=== PATIENT | male | born 1955 | race Caucasian/White ===

== ENCOUNTER → 2020-07-13 | Outpatient (CLI) | payer MEDICARE, SELFPAY ==
[2017-09-06 08:21] VITALS: BMI 25.5
[2020-07-13 10:46] LABS: Absolute Lymphocyte Count 1.13 X10^3/uL (0.83-4.51); Absolute Neutrophil Count 2.6 X10^3/uL (2.0-7.7); Basophil# 0.03 X10^3/uL; Basophil% 0.6 % (0-1); Eosinophil# 0.17 X10^3/uL; Eosinophils% 3.6 % (0-5); Hematocrit 47.9 % (40-54); Hemoglobin 15.8 g/dL (13.0-16.5); Lymphocyte # 1.13 X10^3/ul (4.0); Mean Corpuscular Hgb 30.7 pg (27.0-32.0); Mean Platelet Vol. 10.5 fl (6.2-12.0); Monocyte# 0.76 X10^3/uL; Monocyte% 16.1 % (0-10); NRBC Flagged by Analyzer 0 % (0-5); Neutrophil # 2.61 X10^3/uL (2.7-7.7); Neutrophil % 55.5 % (47-70); Platelet Count 227 K/mm3 (150-450); RBC Distribution Width SD 44.2 fl (35.1-43.9); Red Blood Count 5.15 M/mm3 (4.6-6.2); White Blood Count 4.7 K/mm3 (4.4-11.0)
[2020-07-13 11:26] LABS: Vitamin D,25 Hydroxy 60.1 ng/mL
[2020-07-13 11:27] LABS: ALB/GLOB Ratio 0.9 RATIO (0.9-2.4); AST(SGOT) 28 U/L (15-37); Alanine Aminotransfer ALT/SGPT 38 U/L (16-61); Albumin, Serum 3.6 g/dL (3.2-5.0); Alkaline Phosphatase 91 U/L (45-117); Anion Gap 5 (5-15); BUN 17 mg/dL (7-18); BUN/Creat Ratio 15.3 RATIO (10-20); Calcium,Total 8.6 mg/dL (8.5-10.1); Chloride 104 mmol/L (98-107); Cholesterol 191 mg/dL (200); Creatinine, Serum 1.11 mg/dL (0.70-1.30); EST Glomerular Filtration Rate 71 mL/min (>60); Est Glom Filt Rate - Afr Amer 86 mL/min (>60); Globulin 3.8 g/dL (2.2-4.2); Glucose 96 mg/dL (74-106); High Density Lipoprotein 48 mg/dL; Potassium 3.6 mmol/L (3.5-5.1); Protein, Total 7.4 g/dL (6.4-8.2); Sodium Level 139 mmol/L (136-145); Triglycerides 77 mg/dL; Very Low Density Lipoprotein 15 mg/dL (5-40)
== END | disposition home or self-care (01) ==
PROVIDERS: Visit Provider Nurse Practitioner Family
DX: I10 Essential (primary) hypertension (principal); E78.5 Hyperlipidemia, unspecified; E55.9 Vitamin D deficiency, unspecified
CPT/HCPCS: 36415; 80053; 80061; 82306; 85025

== ENCOUNTER → 2020-10-13 16:26 | Outpatient (CLI) | payer MEDICARE, SELFPAY ==
--- NOTE | 2020-10-13 16:48 | RAD_ITS ---
STUDY: X-RAY - ABDOMEN/PELVIS REASON FOR EXAM: Male, 64 years old. CONSTIPATION TECHNIQUE: AP supine and upright views of the abdomen and pelvis. COMPARISON: None. FINDINGS: Normal visualized lung bases. There is an unremarkable bowel gas pattern. There is no demonstrated free abdominal air. The visualized liver, spleen and kidneys are grossly normal in size and morphology. Normal soft tissue structures. Mild dextroscoliosis of the lumbar spine with degenerative disc disease. RAD/Abd Inc Decub and/or Erect IMPRESSION: Normal x-ray examination of the abdomen and pelvis. Electronically Signed: Mark Riojas MD at 17:16 EST Tel , Service support ,
[2020-10-13 21:30] LABS: Absolute Lymphocyte Count 0.83 X10^3/uL (0.83-4.51); Absolute Neutrophil Count 2.8 X10^3/uL (2.0-7.7); Basophil# 0.02 X10^3/uL; Basophil% 0.5 % (0-1); Eosinophil# 0.02 X10^3/uL; Eosinophils% 0.5 % (0-5); Hematocrit 51.9 % (40-54); Lymphocyte # 0.83 X10^3/ul (4.0); Lymphocyte % 20.2 % (19-41); Mean Corp Hgb Conc 32.8 g/dL (32-36); Mean Corpuscular Hgb 30.9 pg (27.0-32.0); Mean Corpuscular Volume 94.2 fL (80-94); Mean Platelet Vol. 11.1 fl (6.2-12.0); Monocyte% 9.8 % (0-10); NRBC Flagged by Analyzer 0 % (0-5); Neutrophil # 2.81 X10^3/uL (2.7-7.7); Neutrophil % 68.5 % (47-70); Platelet Count 178 K/mm3 (150-450); RBC Distribution Width CV 12.4 % (11.6-14.6); RBC Distribution Width SD 43.2 fl (35.1-43.9); Red Blood Count 5.51 M/mm3 (4.6-6.2); White Blood Count 4.1 K/mm3 (4.4-11.0)
[2020-10-13 21:55] LABS: ALB/GLOB Ratio 0.8 RATIO (0.9-2.4); AST(SGOT) 42 U/L (15-37); Alanine Aminotransfer ALT/SGPT 40 U/L (16-61); Albumin, Serum 3.3 g/dL (3.2-5.0); Alkaline Phosphatase 106 U/L (45-117); Anion Gap 8 (5-15); BUN 18 mg/dL (7-18); BUN/Creat Ratio 12.2 RATIO (10-20); Calcium,Total 8.7 mg/dL (8.5-10.1); Chloride 96 mmol/L (98-107); Creatinine, Serum 1.47 mg/dL (0.70-1.30); EST Glomerular Filtration Rate 51 mL/min (>60); Est Glom Filt Rate - Afr Amer 62 mL/min (>60); Globulin 4.4 g/dL (2.2-4.2); Glucose 99 mg/dL (74-106); Magnesium 2.3 mg/dL (1.6-2.6); Potassium 3.6 mmol/L (3.5-5.1); Protein, Total 7.7 g/dL (6.4-8.2); Sodium Level 133 mmol/L (136-145); Thyroid Stim Hormone (TSH) 3.14 uIU/mL (0.358-3.74)
== END ==
DX: M79.10 Myalgia, unspecified site (principal); K59.00 Constipation, unspecified; R42 Dizziness and giddiness
CPT/HCPCS: 36415; 74019; 80053; 83735; 84443; 85025

== ENCOUNTER 2021-01-16 11:27 | Emergency (ER) | payer MEDICARE, SELFPAY ==
[2021-01-16 11:28] VITALS: BP 139/99; PULSE 98; RESP 16; TEMP 35.8; O2SAT 96; BMI 27.4
--- NOTE | 2021-01-16 13:04 | CT_ITS ---
STUDY: CT SOFT TISSUE NECK WITH CONTRAST REASON FOR EXAM: Male, 65 years old. DYSPHAGIA, PT STATES and quot;GOT SOMETHING STUCK IN THROAT and quot; RADIATION DOSAGE (If Supplied By Facility): CTDIvol = ( 14.9 ) mGy, DLP = ( 431.88 ) mGycm TECHNIQUE: The patient was scanned in a multi-detector CT scanner. High resolution transaxial imaging was performed following intravenous administration of IV 100mL Isovue-370. Sagittal and coronal images were reconstructed. Individualized dose optimization techniques were used for this CT. COMPARISON: None. FINDINGS: Normal bilateral parotid glands. Normal bilateral case work aide spaces. Normal bilateral parapharyngeal spaces. Normal bilateral carotid spaces. Normal bilateral sublingual and submandibular glands and spaces. There is diffuse adenoidal enlargement consistent with adenoidal hyperplasia. Normal retropharyngeal space. Normal perivertebral space. Normal visualized bilateral faucial tonsils. The visualized tongue, tongue base and oropharynx are normal. The visualized cervical lymph nodes (levels I-) are within normal size limits, and maintain normal morphology. There is no demonstrated solid or cystic mass lesion. There is no abnormal contrast enhancement. Normal epiglottis, bilateral vallecula and hypopharynx. The pre-epiglottic and paraglottic adipose spaces are normal. Normal visualized bilateral piriform sinuses, aryepiglottic folds, vocal cords, and arytenoid-cricoid articulations. Normal subglottic trachea. Normal bilateral lobes of the thyroid gland. Normal visualized pulmonary apices. Normal visualized paranasal sinuses. There is multilevel degenerative changes of the cervical spine. CT/Soft Tissue Neck WITH Contrast IMPRESSION: There is evidence of hyperplasia of the adenoids. Mildly dilated proximal esophagus with air-fluid level. Electronically Signed: Benji Cuellar MD at 14:09 EST , Service support ,
--- NOTE | 2021-01-16 14:46 | ED.DCSUM_ITS ---
- ER Visit Summary Date of Service: 01/16/21 Chief Complaint: Sensation of food stuck in throat History of Present Illness: The patient is a 65 M presenting with sensation that he has food stuck in his throat. He states this has been ongoing for the past 3 days. He has been able to swallow food and liquids without difficulty. He denies nausea or vomiting. Denies other complaints. Physical Examination: Vitals are stable. Patient is afebrile. Alert no acute distress. HEENT exam is unremarkable. Normal pharynx Neck is supple. Lungs are clear and equal bilaterally. Heart is regular rate and rhythm. Abdomen is soft nontender nondistended. Extremities are unremarkable. Skin is warm and dry. Remainder of exam is unremarkable. Emergency Department Course and Treatment: Patient is able to swallow in the ED without difficulty. CT soft tissue neck with contrast shows there is evidence of hyperplasia of the adenoids. Mildly dilated proximal esophagus with air-fluid level. Discussed with Dr. Abbott, patient will follow-up in the office as needed. Advised return to the ED for worsening complaints. Disposition: Discharge home Impression: Dysphagia This note was generated with [employer] dictation software. It may contain incorrect words, spelling, and punctuation that were not noted in review of the chart prior to signing ED Disposition - Plan for ED Patient: Instructions: ED Dysphagia (Adult) Referrals: Meme Abbott MD [STAFF PHYSICIAN] - [facility],Jessie Sorensen [Primary Care Provider] -
--- NOTE | 2021-01-16 14:49 | DCINST.ED_ITS ---
ED Disposition - Plan for ED Patient: Instructions: ED Dysphagia (Adult) Referrals: [facility],Jessie Sorensen [Primary Care Provider] - Meme Abbott MD [STAFF PHYSICIAN] -
--- NOTE | 2021-01-16 14:49 | ED.DEP ---
ED Disposition - Plan for ED Patient: Instructions: ED Dysphagia (Adult) Referrals: [facility],Jessie Sorensen [Primary Care Provider] - Meme Abbott MD [STAFF PHYSICIAN] -
== END 2021-01-16 15:21 | disposition home or self-care (01) ==
LOC: ED 12:14
PROVIDERS: Emergency Provider Emergency Medicine
DX: R13.10 Dysphagia, unspecified (principal); I10 Essential (primary) hypertension
CPT/HCPCS: 70491; 99282; Q9967; A4216

== ENCOUNTER → 2021-01-25 08:31 | Outpatient (CLI) | payer MEDICARE, MEDICAID, SELFPAY ==
[2021-01-16 11:28] VITALS: BMI 27.4
[2021-01-20 13:20] VITALS: BMI 27.4
--- NOTE | 2021-01-25 08:40 | RAD_ITS ---
STUDY: X-RAY - ESOPHAGUS (BARIUM SWALLOW) WITH FLUOROSCOPY REASON FOR EXAM: Male, 65 years old. DYSPHAGIA TECHNIQUE: 12 view(s) of the esophagus were obtained following swallowing of barium. FLUOROSCOPY TIME (if supplied): (0:53) minutes/seconds COMPARISON: None. FINDINGS: There is no demonstrated esophageal foreign body. There is no demonstrated stricture or mucosal abnormality. Normal gastroesophageal junction, without a demonstrated hiatal hernia. The patient ingested a 12 mm tablet of barium without any difficulty. Normal visualized aortic arch and descending thoracic aorta. Normal visualized pulmonary parenchyma. Normal visualized osseous structures of the thorax. RAD/Esophagus Dual Contrast IMPRESSION: Normal plain film x-ray examination (barium swallow) of the esophagus. Electronically Signed: Benji Cuellar MD at 10:52 EST , Service support ,
== END ==
DX: R13.10 Dysphagia, unspecified (principal); R93.89 Abnormal findings on diagnostic imaging of other specified body structures
CPT/HCPCS: 74220; 74221

== ENCOUNTER → 2021-02-10 11:13 | Outpatient (CLI) | payer MEDICARE, MEDICAID, SELFPAY ==
[2021-01-20 13:20] VITALS: BMI 27.4
[2021-02-10 09:12] LABS: Absolute Lymphocyte Count 0.95 X10^3/uL (0.83-4.51); Absolute Neutrophil Count 2.4 X10^3/uL (2.0-7.7); Basophil# 0.02 X10^3/uL; Basophil% 0.5 % (0-1); Eosinophil# 0.11 X10^3/uL; Eosinophils% 2.6 % (0-5); Hematocrit 47.4 % (40-54); Hemoglobin 15.8 g/dL (13.0-16.5); Lymphocyte # 0.95 X10^3/ul (4.0); Lymphocyte % 22.7 % (19-41); Mean Corp Hgb Conc 33.3 g/dL (32-36); Mean Corpuscular Hgb 31.4 pg (27.0-32.0); Mean Corpuscular Volume 94.2 fL (80-94); Mean Platelet Vol. 9.7 fl (6.2-12.0); Monocyte# 0.66 X10^3/uL; Monocyte% 15.8 % (0-10); NRBC Flagged by Analyzer 0 % (0-5); Neutrophil # 2.42 X10^3/uL (2.7-7.7); Neutrophil % 57.9 % (47-70); Platelet Count 207 K/mm3 (150-450); RBC Distribution Width CV 12.5 % (11.6-14.6); RBC Distribution Width SD 43.4 fl (35.1-43.9); Red Blood Count 5.03 M/mm3 (4.6-6.2); White Blood Count 4.2 K/mm3 (4.4-11.0)
[2021-02-10 10:01] LABS: Vitamin D,25 Hydroxy 62.1 ng/mL
[2021-02-10 10:02] LABS: ALB/GLOB Ratio 1.1 RATIO (0.9-2.4); AST(SGOT) 26 U/L (15-37); Alanine Aminotransfer ALT/SGPT 38 U/L (16-61); Albumin, Serum 3.8 g/dL (3.2-5.0); Alkaline Phosphatase 94 U/L (45-117); Anion Gap 6 (5-15); BUN 15 mg/dL (7-18); BUN/Creat Ratio 11.6 RATIO (10-20); Calcium,Total 9.1 mg/dL (8.5-10.1); Chloride 106 mmol/L (98-107); Cholesterol 212 mg/dL (200); Creatinine, Serum 1.29 mg/dL (0.70-1.30); EST Glomerular Filtration Rate 59 mL/min (>60); Est Glom Filt Rate - Afr Amer 72 mL/min (>60); Globulin 3.6 g/dL (2.2-4.2); Glucose 90 mg/dL (74-106); High Density Lipoprotein 44 mg/dL; Potassium 3.7 mmol/L (3.5-5.1); Protein, Total 7.4 g/dL (6.4-8.2); Sodium Level 140 mmol/L (136-145); Triglycerides 154 mg/dL; Very Low Density Lipoprotein 31 mg/dL (5-40)
== END ==
PROVIDERS: Visit Provider Surgery
DX: I10 Essential (primary) hypertension (principal); E55.9 Vitamin D deficiency, unspecified; E78.5 Hyperlipidemia, unspecified; E87.6 Hypokalemia; Z20.822 Contact with and (suspected) exposure to COVID-19
CPT/HCPCS: 36415; 80053; 80061; 82306; 85025; 87426; C9803

== ENCOUNTER → 2021-09-15 16:28 | Outpatient (CLI) | payer MEDICARE, MEDICAID, SELFPAY ==
[2021-09-15 17:34] LABS: ALB/GLOB Ratio 0.9 RATIO (0.9-2.4); AST(SGOT) 43 U/L (15-37); Alanine Aminotransfer ALT/SGPT 37 U/L (16-61); Albumin, Serum 3.6 g/dL (3.2-5.0); Alkaline Phosphatase 91 U/L (45-117); Anion Gap 4 (5-15); BUN 19 mg/dL (7-18); BUN/Creat Ratio 15.8 RATIO (10-20); Calcium,Total 8.9 mg/dL (8.5-10.1); Chloride 106 mmol/L (98-107); Cholesterol 178 mg/dL (200); EST Glomerular Filtration Rate 64 mL/min (>60); Est Glom Filt Rate - Afr Amer 78 mL/min (>60); Glucose 110 mg/dL (74-106); High Density Lipoprotein 45 mg/dL; Protein, Total 7.6 g/dL (6.4-8.2); Sodium Level 137 mmol/L (136-145); Thyroid Stim Hormone (TSH) 2.11 uIU/mL (0.358-3.74); Triglycerides 78 mg/dL; Very Low Density Lipoprotein 16 mg/dL (5-40)
[2021-09-19 17:03] LABS: PSA, Total 0.3 ng/mL (0.0-4.0)
== END ==
PROVIDERS: Visit Provider Nurse Practitioner Adult Health
DX: I10 Essential (primary) hypertension (principal); Z12.5 Encounter for screening for malignant neoplasm of prostate
CPT/HCPCS: 36415; 80053; 80061; 84153; 84443; G0103

== ENCOUNTER → 2022-03-22 | Outpatient (CLI) | payer MEDICARE, SELFPAY ==
[2022-03-22 12:50] LABS: ALB/GLOB Ratio 0.9 RATIO (0.9-2.4); AST(SGOT) 24 U/L (15-37); Alanine Aminotransfer ALT/SGPT 30 U/L (16-61); Albumin, Serum 3.7 g/dL (3.2-5.0); Alkaline Phosphatase 96 U/L (45-117); BUN 22 mg/dL (7-18); BUN/Creat Ratio 17.9 RATIO (10-20); Calcium,Total 9.6 mg/dL (8.5-10.1); Creatinine, Serum 1.23 mg/dL (0.70-1.30); EST Glomerular Filtration Rate 63 mL/min (>60); Est Glom Filt Rate - Afr Amer 76 mL/min (>60); Glucose 106 mg/dL (74-106); Protein, Total 7.7 g/dL (6.4-8.2); Sodium Level 137 mmol/L (136-145)
[2022-03-22 12:51] LABS: Anion Gap 4 (5-15); Chloride 104 mmol/L (98-107)
== END | disposition home or self-care (01) ==
LOC: LABSPEC 13:47 → LAB 03-23 06:22
PROVIDERS: Visit Provider Nurse Practitioner Adult Health
DX: I10 Essential (primary) hypertension (principal)
CPT/HCPCS: 36415; 80053

== ENCOUNTER 2022-09-24 11:50 | Outpatient (CLI) | payer MEDICARE, SELFPAY ==
[2022-09-24 13:54] LABS: Vitamin D,25 Hydroxy 85.7 ng/mL
[2022-09-24 14:05] LABS: Anion Gap 8 (5-15); BUN 18 mg/dL (7-18); BUN/Creat Ratio 14.9 RATIO (10-20); Calcium,Total 9.5 mg/dL (8.5-10.1); Chloride 102 mmol/L (98-107); Cholesterol 172 mg/dL (200); Creatinine, Serum 1.21 mg/dL (0.70-1.30); EST Glomerular Filtration Rate 64 mL/min (>60); Est Glom Filt Rate - Afr Amer 77 mL/min (>60); Glucose 114 mg/dL (74-106); High Density Lipoprotein 46 mg/dL; Potassium 3.9 mmol/L (3.5-5.1); Sodium Level 134 mmol/L (136-145); Triglycerides 98 mg/dL; Very Low Density Lipoprotein 20 mg/dL (5-40)
== END 2022-09-24 23:59 | disposition home or self-care (01) ==
DX: I10 Essential (primary) hypertension (principal)
CPT/HCPCS: 36415; 80048; 80061; 82306

== ENCOUNTER → 2023-07-18 | Outpatient (CLI) | payer MEDICARE, MEDICAID, SELFPAY ==
[2023-07-18 11:17] LABS: Absolute Lymphocyte Count 1.15 X10^3/uL (0.83-4.51); Absolute Neutrophil Count 5.9 X10^3/uL (2.0-7.7); Basophil# 0.03 X10^3/uL; Basophil% 0.4 % (0-1); Eosinophil# 0.22 X10^3/uL; Eosinophils% 2.6 % (0-5); Hemoglobin 16.5 g/dL (13.0-16.5); Lymphocyte # 1.15 X10^3/ul (0.83-4.51); Lymphocyte % 13.6 % (19-41); Mean Corp Hgb Conc 33.7 g/dL (32-36); Mean Corpuscular Hgb 31.5 pg (27.0-32.0); Mean Corpuscular Volume 93.5 fL (80-94); Mean Platelet Vol. 9.8 fl (6.2-12.0); Monocyte# 1.09 X10^3/uL; Monocyte% 12.9 % (0-10); NRBC Flagged by Analyzer 0 % (0-5); Neutrophil # 5.93 X10^3/uL (2.7-7.7); Neutrophil % 70.1 % (47-70); Platelet Count 267 K/mm3 (150-450); RBC Distribution Width CV 13.1 % (11.6-14.6); RBC Distribution Width SD 44.8 fl (35.1-43.9); Red Blood Count 5.24 M/mm3 (4.6-6.2); White Blood Count 8.5 K/mm3 (4.4-11.0)
[2023-07-18 12:00] LABS: AST(SGOT) 27 U/L (15-37); Alanine Aminotransfer ALT/SGPT 34 U/L (16-61); Albumin, Serum 3.9 g/dL (3.2-5.0); Alkaline Phosphatase 89 U/L (45-117); Anion Gap 7 (5-15); BUN 31 mg/dL (7-18); BUN/Creat Ratio 22.3 RATIO (10-20); Calcium,Total 9.5 mg/dL (8.5-10.1); Chloride 102 mmol/L (98-107); Cholesterol 205 mg/dL (200); Creatinine, Serum 1.39 mg/dL (0.70-1.30); EST Glomerular Filtration Rate 54 mL/min (>60); Est Glom Filt Rate - Afr Amer 65 mL/min (>60); Free T3 3.4 pg/mL (2.18-3.98); Globulin 3.9 g/dL (2.2-4.2); Glucose 107 mg/dL (74-106); High Density Lipoprotein 42 mg/dL; Magnesium 2.1 mg/dL (1.6-2.6); PSA,Total - Annual Screen 0.36 ng/mL (0.00-4.00); Potassium 4.2 mmol/L (3.5-5.1); Protein, Total 7.8 g/dL (6.4-8.2); Sodium Level 134 mmol/L (136-145); T4 Free Direct 1.03 ng/dL (0.76-1.46); Thyroid Stim Hormone (TSH) 1.54 uIU/mL (0.358-3.74); Triglycerides 116 mg/dL; Very Low Density Lipoprotein 23 mg/dL (5-40)
[2023-07-18 15:17] LABS: Hemoglobin A1c 5.5 % (3.8-5.6)
[2023-07-18 21:37] LABS: Vitamin D,25 Hydroxy 113.3 ng/mL
== END | disposition home or self-care (01) ==
LOC: LAB 10:42
PROVIDERS: PCP Internal Medicine; Referring Provider Internal Medicine; Visit Provider Internal Medicine
DX: I10 Essential (primary) hypertension (principal); H91.93 Unspecified hearing loss, bilateral; K21.9 Gastro-esophageal reflux disease without esophagitis; Z13.220 Encounter for screening for lipoid disorders; Z12.5 Encounter for screening for malignant neoplasm of prostate; R73.9 Hyperglycemia, unspecified; E55.9 Vitamin D deficiency, unspecified
CPT/HCPCS: 36415; 80053; 80061; 82306; 83036; 83735; 84153; 84439; 84443; 84481; 85025; G0103

== ENCOUNTER 2024-01-09 11:17 | Emergency (ER) | payer MEDICARE, MEDICAID, SELFPAY ==
[2024-01-09 11:18] VITALS: BP 137/93; PULSE 71; RESP 14; TEMP 36.6; O2SAT 99; BMI 34.4
--- NOTE | 2024-01-09 12:16 | CT_ITS ---
STUDY: CT ABDOMEN AND PELVIS WITH CONTRAST REASON FOR EXAM: Male, 68 years old. Lower abd pain, rectal bleeding RADIATION DOSAGE (If Supplied By Facility): CTDIvol = ( 14.33 ) mGy, DLP = ( 1007.17 ) mGycm TECHNIQUE: IV 100mL Isovue-300 was administered. Transaxial images were obtained from the dome of the diaphragm to the symphysis pubis. Multiplanar coronal and sagittal images were reformatted. Individualized Dose Optimization Techniques Were Used For This CT. COMPARISON: Prior study dated: 09/25/2017. FINDINGS: The lower chest demonstrates calcified granulomata. The visualized portions of the heart are within normal limits. Liver cysts are again seen, the largest measures about 1 cm unchanged. Normal gallbladder and extrahepatic biliary system. Normal spleen. Normal pancreas. Normal bilateral adrenal glands. 1.2 cm simple cyst in the lower pole of the left kidney. No evidence of hydronephrosis. Probable small hiatal hernia. Normal in caliber small bowel loops. Motion artifacts limiting the examination. Thickening of a segment of the descending colon consistent with colitis. Diverticulitis is less likely. The appendix is visualized and appears normal. There is atherosclerotic calcification of the abdominal aorta with mild elongation and tortuosity, but without a demonstrated aneurysm. Thickening of the bladder wall probably due to underdistention Mild thickening of the bladder wall probably due to underdistention. Small bilateral inguinal hernias containing fat. Degenerative changes of the spine. CT/Abdomen/Pelvis W IV Cont ONLY IMPRESSION: 1. Segment of inflammatory changes of the descending colon consistent with colitis. 2. Otherwise no focal acute inflammatory process. 3. Small bilateral inguinal hernias containing fat. Electronically Signed: Brooks Trejo MD at 13:48 EST ,
--- NOTE | 2024-01-09 12:17 | ED.VIS.GI ---
HPI HPI - GI History of Present Illness Chief Complaint: GI Bleed Informant: patient and friend (Helped by riding some things down. Patient can read lips and speak.) Narrative Narrative: 2 or 3 days ago this 68-year-old deaf male states he had a normal soft bowel movement followed by rectal bleeding Right afterwards. He states shortly thereafter, he felt weak and collapsed to the floor without injury but was unable to get up on his own for about 8 hours but then eventually did. He states while he was there, he developed lower abdominal pain that has been there ever since, he did not bleed while he was lying there awake, but he has had more bleeding with bowel movements since then. He denies any dizziness/lightheadedness, nausea, vomiting, dyspnea or chest pain. Denies rectal pain. PFSH FORMERLY [facility], 1928–1983 Medical History GERD (gastroesophageal reflux disease) HTN (hypertension) Screen for colon cancer Home Medications amlodipine 10 mg tablet 10 mg PO DAILY BLOOD PRESSURE #90 tabs 04/04/23 [Rx Last Taken Unknown] cholecalciferol (vitamin D3) 125 mcg (5,000 unit) capsule 5,000 unit PO DAILY SUPPLEMENT #90 caps 04/04/23 [Rx Last Taken Unknown] omeprazole 20 mg capsule,delayed release 20 mg PO DAILY GERD #90 caps 04/04/23 [Rx Last Taken Unknown] losartan 50 mg-hydrochlorothiazide 12.5 mg tablet 1 tab PO DAILY BLOOD PRESSURE #90 tabs 04/06/23 [Rx Last Taken Unknown] spironolactone 25 mg tablet 25 mg PO DAILY BLOOD PRESSURE #90 tabs 04/11/23 [Rx Last Taken Unknown] ciprofloxacin HCl 500 mg tablet 500 mg PO BID #14 TABLETS 01/09/24 [Rx Last Taken Unknown] metronidazole 500 mg tablet 500 mg PO BID #14 tabs 01/09/24 [Rx Last Taken Unknown] Allergy/AdvReac Type Severity Reaction Status Date / Time No Known Allergies Allergy Verified 01/09/24 11:18 Family History Father Heart disease Mother Kidney disease Other CVA (cerebral vascular accident) Surgical History S/P hernia repair Social History adopted: No household members: none housing: house current occupational status: unemployed leisure activities: other history of recent travel: No sexually active: No Smoking Status: Never smoker alcohol intake: never substance use type: does not use ROS ROS ED Constitutional Constitutional ED: Denies chills or fever(s) Eyes Eyes: Denies change in vision or diplopia ENT ENT ED: Reports other; Denies rhinorrhea or sore throat Cardiovascular Cardiovascular: Denies chest pain or palpitations Respiratory/Chest Respiratory/Chest: Denies cough or dyspnea Gastrointestinal Gastrointestinal: Reports as per HPI, abdominal pain and hematochezia; Denies diarrhea, melena, nausea or vomiting Genitourinary Genitourinary ED: Denies dysuria or hematuria Musculoskeletal Musculoskeletal: Denies back pain or neck pain Integumentary Denies abscess or rash Neurologic Neurologic: Denies headache(s), paresthesias or weakness Psychiatric Psychiatric: Denies anxiety or suicidal thoughts EXAM Physical Exam Const Vital Signs: 01/09/24 11:18 Temperature 98 F Temperature Source Temporal Pulse Rate 71 Respiratory Rate 14 Blood Pressure 137/93 H Blood Pressure Mean 107 Pulse Ox 99 Oxygen Delivery Method Room Air Positive well nourished and well developed General Appearance ED: well developed and NAD HEENT Reports moist mucous membranes normocephalic and atraumatic Eyes PERRL and EOMs intact bilaterally Neck full ROM and supple Resp normal respiratory effort and clear to auscultation bilaterally Cardio regular rate, regular rhythm and no murmurs GI non-distended GI Narrative: Mild bilateral lower quadrant tenderness without guarding or rebound or pulsatile mass. On rectal, there is a small amount of red stool present, but there is no active bleeding or pooling on SUSAN. No palpable tenderness/abscess. No external or prolapsed thrombosed hemorrhoids. Auscultation: normoactive bowel sounds Palpation: soft Back/Spine no CVA tenderness General Back: other FROM Extremity normal to inspection General Extremety ED: Negative for edema, pulses abnormal or tenderness General Extremity: Negative for edema or pulses abnormal Neuro oriented x3, CN's II-XII intact bilaterally and no sensory deficits noted Sensorium / Orientation: awake and alert Motor Exam: strength 5/5 throughout Skin no rashes or lesions noted and no wounds MDM MDM MDM Narrative Medical decision making narrative: The patient's symptoms are consistent with a bleeding internal hemorrhoid which is certainly in the differential diagnosis, but so are other colonic sources of bleeding since he is having a lower abdominal discomfort. For this reason labs and a CT were obtained. I reviewed the images and report which I agree with, it shows some mild distal colitis without evidence of diverticulosis/diverticulitis, or perforation. No other inflammatory acute issues. He does have a mild leukocytosis. Therefore I am going to treat empirically for possible infectious colitis with Cipro and Flagyl, and advised close outpatient follow-up, he has an appointment with his doctor later this month which I think is a reasonable place to start. He is on no antiplatelets or anticoagulants that we need to discontinue temporarily. He is comfortable with that plan. Lab Data Attestation: I reviewed the patient's lab results. Labs: Laboratory Results - last 24 hr 01/09/24 12:30 WBC 13.6 H RBC 4.85 Hgb 14.9 Hct 44.3 MCV 91.3 MCH 30.7 MCHC 33.6 RDW Std Deviation 41.7 RDW Coeff of Lisseth 12.5 Plt Count 229 MPV 10.2 Immature Gran % (Auto) 1.000 H Neut % (Auto) 83.9 H Lymph % (Auto) 7.2 L Surry % (Auto) 7.0 Eos % (Auto) 0.5 Baso % (Auto) 0.4 Absolute Neuts (auto) 11.4 H Absolute Lymphs (auto) 0.98 Nucleated RBC % 0 Sodium 135 L Potassium 3.7 Chloride 104 Carbon Dioxide 27.0 Anion Gap 4 L BUN 23 H Creatinine 1.39 H Estim Creat Clear Calc 44.63 Est GFR (MDRD) Af Amer 65 Est GFR (MDRD) Non-Af 54 L BUN/Creatinine Ratio 16.5 Glucose 110 H Calcium 9.2 Total Bilirubin 0.60 AST 18 ALT 24 Alkaline Phosphatase 95 Total Creatine Kinase 76 Total Protein 7.1 Albumin 3.3 Globulin 3.8 Albumin/Globulin Ratio 0.9 Radiography Diagnostic Testing: Clinical Impression(s) from Imaging Studies Abdomen/Pelvis CT 01/09/24 12:16 IMPRESSION: 1. Segment of inflammatory changes of the descending colon consistent with colitis. 2. Otherwise no focal acute inflammatory process. 3. Small bilateral inguinal hernias containing fat. Electronically Signed: Brooks Trejo MD at 13:48 EST , Discharge Plan Triage Chief Complaint: GI Bleed ED Provider: Jamel Paul Dx/Rx/DC Orders Clinical Impression: Colitis, Acute lower GI bleeding Instructions: ED Understanding Colitis, ED Lower GI Bleeding (Stable) Prescriptions: New metronidazole [metronidazole] 500 mg tablet 500 mg PO BID Qty: 14 0RF ciprofloxacin HCl [ciprofloxacin HCl] 500 mg tablet 500 mg PO BID Qty: 14 0RF No Action amlodipine 10 mg tablet 10 mg PO DAILY Qty: 90 3RF cholecalciferol (vitamin D3) 125 mcg (5,000 unit) capsule 5,000 unit PO DAILY Qty: 90 1RF omeprazole 20 mg capsule,delayed release(DR/EC) 20 mg PO DAILY Qty: 90 3RF losartan-hydrochlorothiazide 50-12.5 mg tablet 1 tab PO DAILY Qty: 90 3RF spironolactone 25 mg tablet 25 mg PO DAILY Qty: 90 3RF Primary Care Provider: Basilia Garcia Referrals: Basilia Garcia MD [Primary Care Provider] - [facility] appointment Disposition Disposition: Home, Self Care
[2024-01-09 12:48] LABS: Absolute Lymphocyte Count 0.98 X10^3/uL (0.83-4.51); Absolute Neutrophil Count 11.4 X10^3/uL (2.0-7.7); Basophil# 0.05 X10^3/uL; Basophil% 0.4 % (0-1); Eosinophil# 0.07 X10^3/uL; Eosinophils% 0.5 % (0-5); Hematocrit 44.3 % (40-54); Hemoglobin 14.9 g/dL (13.0-16.5); Lymphocyte # 0.98 X10^3/ul (0.83-4.51); Lymphocyte % 7.2 % (19-41); Mean Corp Hgb Conc 33.6 g/dL (32-36); Mean Corpuscular Hgb 30.7 pg (27.0-32.0); Mean Corpuscular Volume 91.3 fL (80-94); Mean Platelet Vol. 10.2 fl (6.2-12.0); Monocyte# 0.95 X10^3/uL; NRBC Flagged by Analyzer 0 % (0-5); Neutrophil # 11.44 X10^3/uL (2.7-7.7); Neutrophil % 83.9 % (47-70); Platelet Count 229 K/mm3 (150-450); RBC Distribution Width CV 12.5 % (11.6-14.6); RBC Distribution Width SD 41.7 fl (35.1-43.9); Red Blood Count 4.85 M/mm3 (4.6-6.2); White Blood Count 13.6 K/mm3 (4.4-11.0)
[2024-01-09 13:01] LABS: ALB/GLOB Ratio 0.9 RATIO (0.9-2.4); AST(SGOT) 18 U/L (15-37); Alanine Aminotransfer ALT/SGPT 24 U/L (16-61); Albumin, Serum 3.3 g/dL (3.2-5.0); Alkaline Phosphatase 95 U/L (45-117); Anion Gap 4 (5-15); BUN 23 mg/dL (7-18); BUN/Creat Ratio 16.5 RATIO (10-20); Calcium,Total 9.2 mg/dL (8.5-10.1); Chloride 104 mmol/L (98-107); Creatinine, Serum 1.39 mg/dL (0.70-1.30); EST Glomerular Filtration Rate 54 mL/min (>60); Est Glom Filt Rate - Afr Amer 65 mL/min (>60); Estimated Creatinine Clearance 44.63 ml/min; Globulin 3.8 g/dL (2.2-4.2); Glucose 110 mg/dL (74-106); Potassium 3.7 mmol/L (3.5-5.1); Protein, Total 7.1 g/dL (6.4-8.2); Sodium Level 135 mmol/L (136-145)
[2024-01-09 13:09] LABS: CPK Total, Creatine Kinase 76 U/L (39-308)
--- OUTSIDE RECORDS SUMMARY | 2024-01-09 13:27 | XMS RPT_ITS | CCD ---
Author Name Unknown Address [address] [place] [address] Organization [facility] Care Team Providers Care Direct Service Professional Name Role Phone Evelin Bain Unavailable Unavailable Alma Delia CHAVEZ, Felipe Knapp Unavailable [phone] Unavailable Primary Care Provider Unavailabl e AJ ZUNIGA Referring Unavailab le GENERIC PROVIDER, NO ASSIGNED PCP Primary Care Unavailable Generic Provider MD, No Assigned Pcp Primary Car e Provider Unavailable RAMONA MELTNO Attending Unavailable PEARLAJ PRATT Referring Unavailab le GENERIC PROVIDER, NO ASSIGNED PCP Primary Care Unavailable Lucrecia Murphy MD Primary Care Provider GENERIC PROVIDER, NO ASSIGNED PCP Primary Care Unavailable YURIDIA SMITH Referring Unavailable LUCRECIA MURPHY Primary Care Unavaila ble TOPHER RIVERS Attending Unavailable LUCRECIA MURPHY Referring Unavaila ble TOPHER RIVERS Attending Unavailable LUCRECIA MURPHY Referring Unavaila ble AJ ZUNIGA Admitting Unavailab le AJ ZUNIGA Attending Unavailab LUCRECIA Barrera Referring Unavaila ble LUCRECIA MURPHY Primary Care Unavaila ble AJ ZUNIGA Attending Unavailab LUCRECIA Barrera Referring Unavaila ble GENERIC PROVIDER, NO ASSIGNED PCP Primary Care Unavailable AJ ZUNIGA Attending Unavailab le GENERIC PROVIDER, NO ASSIGNED PCP Primary Care Unavailable AJ ZUNIGA Attending Unavailab LUCRECIA Barrera Primary Care Unavaila ble Allergies Allergy Classification Reported Allergen(s) Allergy Type Date of Onset Reaction(s) Facility (1 source) ALLERGIES NOT ON FILE; Translations: [ALLERGIES NOT ON FILE] Propensity to adverse reactions (disorder) [facility] Medications Current Medications Medication Drug Class(es) Dates Sig (Normalized) Sig (Original) acetaminophen 325 mg oral tablet (2 sources) Start: 12-27-2023 take 2 tablets by mouth every six hours for pain acetaminophen (Tylenol) 325 mg tablet Indications: Sensorineural hearing loss (SNHL) of both ears Take 2 tablets (650 mg) by mouth every 6 hours if needed for mild pain (1 - 3) for up to 20 doses. 20 tablet 0 12/27/2023 Active Completed/Discontinued Medications Medication Drug Class(es) Dates Sig (Normalized) Sig (Original) amLODIPine 10 mg oral tablet (7 sources) Dihydropyridine Calcium Channel Silvestre Start: 08-12-2017 take 1 tablet by mouth once daily NORVASC 10 MG TABS One tablet by mouth daily AMLODIPINE BESYLATE [id number] Ladi Navarro Problems Active Problems Problem Classification Problem Date Documented Date Episodic/Chronic Acute myocardial infarction (3 sources) Myocardial infarction; Translations: [ST elevation (STEMI) myocardial infarction of unspecified site] Onset: 08-12-2017 08-12-2017 Chronic Essential hypertension (5 sources) Hypertensive disorder; Translations: [Essential hypertension] Onset: 08-12-2017 08-12-2017 Chronic Other ear and sense organ disorders (3 sources) Hearing loss; Translations: [Unspecified hearing loss, unspecified ear] Onset: 08-12-2017 08-12-2017 Chronic Other ear and sense organ disorders (8 sources) Sensorineural hearing loss, bilateral; Translations: [Sensorineural hearing loss, bilateral] Onset: 09-25-2023 09-25-2023 Chronic Other ear and sense organ disorders (8 sources) Sensorineural hearing loss, bilateral; Translations: [Sensorineural hearing loss, bilateral] Onset: 09-25-2023 Chronic Other ear and sense organ disorders (2 sources) Cochlear implant status; Translations: [Cochlear implant status] Onset: 01-06-2024 Chronic Other nervous system disorders (5 sources) Cognitive deficit in communication skills; Translations: [Cognitive communication deficit] Onset: 10-15-2023 10-16-2023 Chronic Other nervous system disorders (1 source) Cognitive communication deficit; Translations: [Cognitive communication deficit] Onset: 10-15-2023 Chronic Other nervous system disorders (3 sources) Symbolic dysfunction; Translations: [Other symbolic dysfunctions] Onset: 10-15-2023 10-15-2023 Episodic Otitis media and related conditions (1 source) Otosclerosis; Translations: [Unspecified otosclerosis, bilateral] 10-16-2023 Episodic Unclassified (2 sources) Screening for malignant neoplasm of colon ; Translations: [Encounter for screening for malignant neoplasm of colon] Onset: 08-12-2017 08-12-2017 Past or Other Problems Problem Classification Problem Date Documented Da te Episodic/Chronic Other and unspecified benign neoplasm (1 source) Lipoma of intra-abdominal organs; Translations: [Benign lipomatous neoplasm of intra-abdominal organs] Onset: 09-10-2017 09-10-2017 Episodic Unclassified (4 sources) Onset: 09-06-2023 09-06-2023 Results Test Name Value Interpretation Reference Range Facil ity Vital Signs Date Time Vital Sign Value Performing Clinician Facility 12-27-2023 14:13-0500 Body temperature 97.5 [degF] Aj Joel MD Work Phone: [facility] 12-27-2023 14:13-0500 Diastolic blood pressure 69 mm[Hg] Aj Joel MD Work Phone: [facility] 12-27-2023 14:13-0500 Heart rate 68 /min Aj Joel MD Work Phone: [facility] 12-27-2023 14:13-0500 Respiratory rate 14 /min Aj Joel MD Work Phone: [facility] 12-27-2023 14:13-0500 SaO2% (BldA) [Mass fraction] 92 % Aj Joel MD Work Phone: [facility] 12-27-2023 14:13-0500 Systolic blood pressure 125 mm[Hg] Aj Joel MD Work Phone: [facility] 12-27-2023 06:03-0500 Body height 172.7 cm Aj Joel MD Work Phone: [facility] 12-27-2023 06:03-0500 Body mass index (BMI) [Ratio] 27.09 kg/m2 Aj Joel MD Work Phone: [facility] 12-27-2023 06:03-0500 Body weight 80.8 kg Aj Joel MD Work Phone: [facility] 09-25-2023 13:15-0400 Body height 172.7 cm Aj Joel MD Work Phone: [facility] 09-25-2023 13:15-0400 Body mass index (BMI) [Ratio] 27.37 kg/m2 Aj Joel MD Work Phone: [facility] 09-25-2023 13:15-0400 Body weight 81.65 kg Aj Joel MD Work Phone: [facility] 08-12-2017 09:16-0400 BMI (Body Mass Index) 25.53 kg/m2 Felipe Flannery MD [facility] Work Phone: 08-12-2017 09:16-0400 Body Temperature 97.7 [degF] Felipe Flannery MD [facility] Work Phone: 08-12-2017 09:16-0400 BP Diastolic 99 mm[Hg] Felipe Flannery MD [facility] Work Phone: 08-12-2017 09:16-0400 BP Systolic 165 mm[Hg] Felipe Flannery MD [facility] Work Phone: 08-12-2017 09:16-0400 Height 173.23 cm Felipe Flannery MD [facility] Work Phone: 08-12-2017 09:16-0400 Pulse (Heart Rate) 51 /min Felipe Flannery MD [facility] Work Phone: 08-12-2017 09:16-0400 Respiratory Rate 20 /min Felipe Flannery MD [facility] Work Phone: 08-12-2017 09:16-0400 Weight 76.61 kg Felipe Flannery MD [facility] Work Phone: Encounters Encounter Date Encounter Type Care Provider Facility Start: 01-06-2024 End: [facility]06[facility] Start: 12-27-2023 End: 12-27-2023 ambulatory [facility] Start: 12-27-2023 End: 12-27-2023 Subsequent hospital visit by physician Aj Joel MD Work Phone: [facility] [place] Procedures Date Procedure Procedure Detail Performing Clinician Start: 12-27-2023 DISCHARGE PATIENT NO GE NERIC PROVIDER Start: 12-27-2023 ADULT DISCHARGE DIET NO GENERIC PROVIDER Start: 12-27-2023 DISCHARGE ACTIVITY NO G ENERIC PROVIDER Start: 12-27-2023 DISCHARGE DRESSING NO G ENERIC PROVIDER Start: 12-27-2023 NOTIFY PROVIDER (DO NOT PROMPT FOR PARAMETERS) NO GENERIC PROVIDER Start: 12-27-2023 WOUND CARE NO GENERIC PROVIDER Start: 12-27-2023 FULL CODE NO GENERIC PROVIDER Start: 12-27-2023 PULSE OXIMETRY, SPOT NO GENERIC PROVIDER Start: 12-27-2023 PLACE IN OUTPATIENT/HOSPITAL AMBULATORY SURGERY NO GENERIC PROVIDER Start: 12-27-2023 PULSE OXIMETRY, SPOT Al melissa Joel MD Work Phone: Start: 12-13-2023 ECG 12-LEAD NO GENERIC PROVIDER Start: 12-13-2023 Ecg routine ecg w/le ast 12 lds trcg only w/o i&r 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 Work Phone: Start: 12-13-2023 Basic metabolic 2000 panel - Serum or Plasma NO GENERIC PROVIDER Start: 12-13-2023 CBC panel - Blood by Automated count NO GENERIC PROVIDER Start: 10-15-2023 AMB REFERRAL TO [facility] Start: 10-04-2023 CT IAC WO IV CONTRAST A ISH JOEL Start: 09-25-2023 CASE REQUEST OPERATI NG ROOM AJ JOEL Start: 09-06-2023 COMPREHENSIVE HEARING TEST NO GENERIC PROVIDER Start: 08-12-2017 Screening for malign ant neoplasm of colon Screening, colon ca Felipe Flannery MD Plan of Treatment Date Care Activity Detail Author Start: 04-14-2024 End: 04-14-2024 Clinical Support 04/14/2024 10:30 AM EDT Clinical Support [address] [address] Francoise Lucas, AuD [address] [facility] [place] [address] [facility] Start: 02-18-2024 End: 02-18-2024 ambulatory 02/18/2024 1:00 PM EDT Evaluation [facility] [address] [place] [address] Ramona Melton, MANAGER METROLOGY [address] [facility] Department of Rehab, [address] [place] [address] [facility] Start: 02-11-2024 End: 02-11-2024 Clinical Support 02/11/2024 1:00 PM EDT Clinical Support [address] [address] Francoise Lucas, AuD [address] [facility] [place] [address] [facility] Start: 01-14-2024 End: 01-14-2024 Clinical Support 01/14/2024 1:00 PM EST Clinical Support [address] [address] Francoise Lucas, AuD [address] [facility] [place] [address] [facility] Start: 01-06-2024 End: 01-06-2024 Patient encounter procedure 01/06/2024 11:30 AM EST Office Visit [facility] [address] [place] [address] [place] [address] [address] [place] [address] [facility] Start: 12-27-2023 End: 12-27-2023 Admission to same day surgery center 12/27/2023 7:15 AM EST - 12/27/2023 10:40 AM EST [place] [address] [place] [id number] [place] [address] [address] [place] [address] Insertion Cochlear Implant [07421 (CPT )] [facility] [place] Immunizations Immunization Date Immunization Notes Care Provider Fa cility 09-27-2023 Pneumococcal conjuga te vaccine, 20-valent (PREVNAR 20) Aj Joel MD Work Phone: [facility] 09-25-2023 pneumococcal vaccine , unspecified formulation Aj Joel MD Work Phone: [facility] Work Phone: Payers Date Payer Category Payer Medicare MEDICARE MEDICAR E PART A AND B [id number] 2002-Present [address] [place] [address] [id number] 2002 Medicare [id number] 1955 Unknown [id number] 2 1955 Unknown [id number] 7 1955 Unknown [id number] 5 1955 Unknown [id number] 5 1955 Unknown [id number] 5 1955 Unknown [id number] 5 1955 Unknown [id number] 5 1955 Unknown [id number] 4 1955 Unknown [id number] 4 1955 Unknown [id number] 4 Social History Date Type Detail Facility Start: 09-25-2023 Tobacco smoking stat [facility] Never smoked tobacco [facility] Work Phone: Start: 09-25-2023 Tobacco use and exposure Smokeless tobacco non-user [facility] Work Phone: Start: 09-25-2023 End: 12-27-2023 Alcohol intake Ex-drinker (finding) [facility] Work Phone: Start: 09-25-2023 End: 12-27-2023 History of Social function [facility] Work Phone: Start: 09-25-2023 End: 12-27-2023 Tobacco use panel [facility] Work Phone: Start: 1955 Sex Assigned At Not on file [facility] Work Phone: Start: 09-15-2023 End: 12-27-2023 Exposure to SARS-CoV-2 (event) Not sure [facility] Medical Equipment Procedure Code Equipment Code Equipment Origin al Text Equipment Identifier Dates Cochlear, Nucleu s Ci632, Profile Plus W/Slim Modiolar Electrode - [id number] - [id number] Start: 12-27-2023 Clinical Notes 01-16-2021 to 12-27-2023 Op Note - Aj Joel MD - 12/27/2023 8:13 AM ESTOp Note - Aj Joel MD - 12/27/2023 8:13 AM ESTDischarge Jose Maria Sharpe MD - 12/27/2023 7:12 AM EST Note Date & Type Note Facility 12-27-2023 Miscellaneous Notes Images from the original note were not included. OPERATIVE NOTE Date: 12/27/2023 OR Location: [facility] OR Name: Jeff Cardenas : 1955, Age: 68 y.o., , Sex: male Surgeons Aj Joel MD Resident/Fellow/Other [employer] Account Assistant: Meng Sharpe MD Anesthesia: General ASA: III Anesthesia Staff: Anesthesiologist: Abdirahman Odonnell MD C-AA: CÉSAR Kaur BRIT: Lisbet Pacheco Staff: Elementary Tutor: Susan Campuzano RN Scrub Person: Mariya De Los Santos; [facility] Preoperative Diagnosis: 1. Sensorineural Hearing Loss - Bilateral. Postoperative Diagnosis: 1. Sensorineural Hearing Loss - Bilateral. Procedure Performed: 1. Cochlear Implantation (61642) - Left 2. Needle electromyography; cranial nerve supplied muscle(s), unilateral - Facial nerve. - Left 3. Microsurgical techniques, requiring use of operating microscope - Left Indications: Jeff Cardenas is a very pleasant 68 y.o. male who presents with Bilateral wkkhzy-qy-[id number], sensorineural hearing loss and poor discrimination. The patient meets criteria for FDA insertion of cochlear implant. The risks, indications, and complications of surgery were discussed including, but not limited to facial nerve injury, deafness in the operated ear, vertigo, dizziness, imbalance, facial weakness or paralysis, change in sense of taste, perforation of eardrum, pain, bleeding, infection, scarring, need for further surgery, device failure, device extrusion, spinal fluid leak, meningitis, brain damage, brain abscess, stroke, and . Informed consent was obtained. We also confirmed the patient received the Pneumococcus vaccine prior to surgery. Because of the extensive nature of the dissection and the close proximity of the facial nerve, facial nerve monitoring was used throughout the case. Operative Findings: 1. Well aerated mastoid. 2. Chemist Physical stimulator position: under temporalis muscle. 2. Facial nerve intact in normal position. 3. Chorda tympani: intact. 4. Approach: Extended round window 5. Implant/ electrode: Cochlear CI632 placed. 6. Narrow facial recess, stapedius tendon sacrificed for improved visualization of round window niche. 7. Insertion: - Very smooth full insertion. - Speed: 60-90sec. - Marker: at RW. - No resistance. 8. Neural response telemetry: good response. 9. Intraop testing: - X-ray: Not Performed. - SmartNav position check: Normal. - ECOG: Not performed. - eSRT: Not performed. Operative Technique: After informed consent was obtained, the patient was taken to the operating room and placed on the operating room table in the supine position. Anesthesia was induced by the anesthesia team without difficulty. Facial nerve monitoring electrodes were placed in the orbicularis ernesto muscle and orbicularis oculi muscle and the monitor was activated. Lidocaine with epinephrine was injected in the postauricular area of the incision and the patient was then prepped and draped in standard sterile fashion. The postauricular incision was made down through the skin and soft tissue to the temporalis muscle and the ear was reflected forward in its avascular plane. Bovie cautery was then used to make a cut through musculofascial layers along the linea temporalis and this then was dissected down to the mastoid tip. Lempert periosteal elevator was used to elevate the soft tissues anteriorly, superiorly, and posteriorly, thus exposing the mastoid and the opening of the external auditory canal. We then used the Lempert elevator to elevate the periosteum off of the skull anteriorly for the ground electrode. The Lempert was then used posterior and superior to the mastoid to develop a tight pocket. Muscle from the sternocleidomastoid muscle was then harvested for use later in the procedure. A retractor was used to hold our view. A standard mastoidectomy was then completed, carefully identifying the tegmen, sinodural angle and posterior canal wall. We identified the lateral semicircular canal and short process of the incus. Using a 3-raphael mallorie, and progressing down to a 1.5-raphael mallorie we opened the facial recess. We carefully identified the chorda tympani, the incus buttress, and the facial nerve. The facial recess was opened exposing the round window and the rest of the middle ear. Due to difficulty visualizing the round window niche, the pyramidal eminence and stapedius tendon were taken down. The mucosa over the round window niche was elevated using a right angle. The round window niche was identified and its lip was drilled to have a 360-degree view of it. An extended round window opening was prepared to improve space for our electrode array insertion. A 2 mm raphael drill was used to created holes at the lateral edge of the mastoidectomy to secure the internal roofer apprentice in place. The ear was copiously irrigated with saline. The cochlear implant was then brought onto the operative field and placed in our subperiosteal pocket. The cochlear implant was then secured in its position with Vicryl 3-0, tagging the opening of the subperiosteal pocket down to bone. Copious irrigation was then performed. At this point, we performed the opening of the round window with a small right angle. Using microsuction and the jeweler's forceps, we inserted the cochlear implant electrode without resistance using off-sheath technique. The electrode was advanced slowly passed the marker on the array, and a pull-back technique was used. The insertion was very smooth. The insertion site was then packed with muscle, leaving the electrode lead inferiorly in the facial recess. The electrode was then carefully coiled back into the mastoid and a piece of Gelfoam was placed over the mastoid to protect the electrodes during closure. The wound was then closed in 3 layers using a 3-0 Vicryl for the muscle, 4-0 Vicryl for the subcuticular stitches and 5-0 fast gut suture for the skin. During this time, the studio data analyst was here to induct neural response telemetry of the cochlear implant and got good responses. SmartNav was performed. At the conclusion of this procedure the incision was covered with a sterile dressing and the draping was removed. A Nicky dressing was applied to the patient's ear. The patient's care was returned to anesthesia for awakening. This completed the procedure. The patient was then emerged from anesthesia and extubated without difficulty. The patient was then transported back to PACU. There were no apparent complications. Following the procedure, the findings were discussed with the patient's family and all of their questions were answered. Attending Attestation: I was present and scrubbed for the entire procedure. Implants: Implant Name Type Inv. Item Serial No. Manager Heavy Duty Lot No. LRB No. Used Action COCHLEAR, NUCLEUS CI632, PROFILE PLUS W/SLIM MODIOLAR ELECTRODE - [id number] - [id number] ENT Implant COCHLEAR, NUCLEUS CI632, PROFILE PLUS W/SLIM MODIOLAR ELECTRODE [id number] COCHLEAR [employer] Left 1 Implanted Specimens: No specimens collected Estimated Blood Loss: 5cc Complications: none Condition of the patient: Stable Disposition: PACU Aj Pearl MD Professor and Chief Otology/Neurotology/Lateral Skull-Base Surgery [facility] Phone: [phone] documented in this encounter [facility] Work Phone: 12-27-2023 Note Formatting of this n ote is different from the original. Images from the original note were not included. OPERATIVE NOTE Date: 12/27/2023 OR Location: [facility] OR Name: Jeff Cardenas : 1955, Age: 68 y.o., , Sex: male Surgeons Aj Joel MD Resident/Fellow/Other Commercial [employer] Account Assistant: Meng Sharpe MD Anesthesia: General ASA: III Anesthesia Staff: Anesthesiologist: Abdirahman Odonnell MD C-AA: CÉSAR Kaur BRIT: Lisbet Pacheco Staff: Elementary Tutor: Susan Campuzano RN Scrub Person: Mariya De Los Santos; Melvina Damon Preoperative Diagnosis: 1. Sensorineural Hearing Loss - Bilateral. Postoperative Diagnosis: 1. Sensorineural Hearing Loss - Bilateral. Procedure Performed: 1. Cochlear Implantation (94635) - Left 2. Needle electromyography; cranial nerve supplied muscle(s), unilateral - Facial nerve. - Left 3. Microsurgical techniques, requiring use of operating microscope - Left Indications: Jeff Cardenas is a very pleasant 68 y.o. male who presents with Bilateral lupqfs-xg-[id number], sensorineural hearing loss and poor discrimination. The patient meets criteria for FDA insertion of cochlear implant. The risks, indications, and complications of surgery were discussed including, but not limited to facial nerve injury, deafness in the operated ear, vertigo, dizziness, imbalance, facial weakness or paralysis, change in sense of taste, perforation of eardrum, pain, bleeding, infection, scarring, need for further surgery, device failure, device extrusion, spinal fluid leak, meningitis, brain damage, brain abscess, stroke, and . Informed consent was obtained. We also confirmed the patient received the Pneumococcus vaccine prior to surgery. Because of the extensive nature of the dissection and the close proximity of the facial nerve, facial nerve monitoring was used throughout the case. Operative Findings: 1. Well aerated mastoid. 2. Chemist Physical stimulator position: under temporalis muscle. 2. Facial nerve intact in normal position. 3. Chorda tympani: intact. 4. Approach: Extended round window 5. Implant/ electrode: Cochlear CI632 placed. 6. Narrow facial recess, stapedius tendon sacrificed for improved visualization of round window niche. 7. Insertion: - Very smooth full insertion. - Speed: 60-90sec. - Marker: at RW. - No resistance. 8. Neural response telemetry: good response. 9. Intraop testing: - X-ray: Not Performed. - SmartNav position check: Normal. - ECOG: Not performed. - eSRT: Not performed. Operative Technique: After informed consent was obtained, the patient was taken to the operating room and placed on the operating room table in the supine position. Anesthesia was induced by the anesthesia team without difficulty. Facial nerve monitoring electrodes were placed in the orbicularis ernesto muscle and orbicularis oculi muscle and the monitor was activated. Lidocaine with epinephrine was injected in the postauricular area of the incision and the patient was then prepped and draped in standard sterile fashion. The postauricular incision was made down through the skin and soft tissue to the temporalis muscle and the ear was reflected forward in its avascular plane. Bovie cautery was then used to make a cut through musculofascial layers along the linea temporalis and this then was dissected down to the mastoid tip. Lempert periosteal elevator was used to elevate the soft tissues anteriorly, superiorly, and posteriorly, thus exposing the mastoid and the opening of the external auditory canal. We then used the Lempert elevator to elevate the periosteum off of the skull anteriorly for the ground electrode. The Lempert was then used posterior and superior to the mastoid to develop a tight pocket. Muscle from the sternocleidomastoid muscle was then harvested for use later in the procedure. A retractor was used to hold our view. A standard mastoidectomy was then completed, carefully identifying the tegmen, sinodural angle and posterior canal wall. We identified the lateral semicircular canal and short process of the incus. Using a 3-raphael mallorie, and progressing down to a 1.5-raphael mallorie we opened the facial recess. We carefully identified the chorda tympani, the incus buttress, and the facial nerve. The facial recess was opened exposing the round window and the rest of the middle ear. Due to difficulty visualizing the round window niche, the pyramidal eminence and stapedius tendon were taken down. The mucosa over the round window niche was elevated using a right angle. The round window niche was identified and its lip was drilled to have a 360-degree view of it. An extended round window opening was prepared to improve space for our electrode array insertion. A 2 mm raphael drill was used to created holes at the lateral edge of the mastoidectomy to secure the internal roofer apprentice in place. The ear was copiously irrigated with saline. The cochlear implant was then brought onto the operative field and placed in our subperiosteal pocket. The cochlear implant was then secured in its position with Vicryl 3-0, tagging the opening of the subperiosteal pocket down to bone. Copious irrigation was then performed. At this point, we performed the opening of the round window with a small right angle. Using microsuction and the jeweler's forceps, we inserted the cochlear implant electrode without resistance using off-sheath technique. The electrode was advanced slowly passed the marker on the array, and a pull-back technique was used. The insertion was very smooth. The insertion site was then packed with muscle, leaving the electrode lead inferiorly in the facial recess. The electrode was then carefully coiled back into the mastoid and a piece of Gelfoam was placed over the mastoid to protect the electrodes during closure. The wound was then closed in 3 layers using a 3-0 Vicryl for the muscle, 4-0 Vicryl for the subcuticular stitches and 5-0 fast gut suture for the skin. During this time, the studio data analyst was here to induct neural response telemetry of the cochlear implant and got good responses. SmartNav was performed. At the conclusion of this procedure the incision was covered with a sterile dressing and the draping was removed. A Nicky dressing was applied to the patient's ear. The patient's care was returned to anesthesia for awakening. This completed the procedure. The patient was then emerged from anesthesia and extubated without difficulty. The patient was then transported back to PACU. There were no apparent complications. Following the procedure, the findings were discussed with the patient's family and all of their questions were answered. Attending Attestation: I was present and scrubbed for the entire procedure. Implants: Implant Name Type Inv. Item Serial No. Manager Heavy Duty Lot No. LRB No. Used Action COCHLEAR, NUCLEUS CI632, PROFILE PLUS W/SLIM MODIOLAR ELECTRODE - [id number] - [id number] ENT Implant COCHLEAR, NUCLEUS CI632, PROFILE PLUS W/SLIM MODIOLAR ELECTRODE [id number] COCHLEAR [facility] Left 1 Implanted Specimens: No specimens collected Estimated Blood Loss: 5cc Complications: none Condition of the patient: Stable Disposition: PACU Aj Pearl MD Professor and Chief Otology/Neurotology/Lateral Skull-Base Surgery [facility] Phone: [phone] [facility] Work Phone: 12-27-2023 Hospital Discharge instructions Nicolle Sharpe MD - 12/27/2023 7:35 AM EST Images from the original note were not included. Most ear surgeries should have a 2-4 week postoperative appointment. Please be sure to call the doctor's office and make a follow-up appointment, if you don't already have it. Dressing or Band-Aid can be removed the day after surgery. Once removed, replace the cotton ball in the ear as needed. Once the dressing is off, and if you have an incision behind your ear with stitches, clean the incision twice daily with soap and water and apply Vaseline or antibiotic ointment after cleaning. If you have paper strips or surgical glue over the incision, Do not apply anything behind the ear. Water should be kept out of the ear until it is healed. You may shower the day after surgery, if you keep your head dry. The hair may be shampooed 2 days following surgery. Bloody discharge from incision area may occur during the first 10 days following surgery. If this persists or increases, please call the office. A full sensation with popping sounds may be noticed during the healing process. DO NOT BLOW YOUR NOSE FOR THREE WEEKS FOLLOWING SURGERY. If you sneeze, do so with your mouth open for three weeks following surgery. Do not use a straw to drink beverages for 3 weeks following surgery. Do not be concerned regarding your hearing for a period of six to eight weeks following surgery. Your hearing will be evaluated at this time; until then, your hearing may sound muffled and your voice may echo in your ear during speech. Minor swelling of the face on the same side of the surgery is not uncommon. Small bruising near the eye or mouth is not uncommon from the facial nerve monitor. Dizziness, ringing in the ear, and taste disturbance after surgery are common. Call if severe. You might notice pain when chewing, please use soft diet for 2 weeks if you experience this. No lifting (more than 10 lbs) or straining until follow up. You will be discharged on pain medications and usually antibiotics. You may resume your routine medications as directed, unless you have been instructed otherwise by the prescribing healthcare provider. Should you experience any difficulty upon returning home, or if you simply have questions, please contact us. As your surgeons, we are most familiar with your operation and postoperative procedures. We are accessible by telephone 24 hours a day, 7 days a week. Once we have assessed your situation, we will be prepared to make specific suggestions for your care. documented in this encounter [facility] Work Phone: 12-27-2023 Attending History and physical note H&P reviewed. The patient was examined and there are no changes to the H&P. Associated attestation - Aj Zuniga MD - 12/27/2023 12:41 PM EST I saw and evaluated the patient. I personally obtained the shepard and critical portions of the history and physical exam or was physically present for shepard and critical portions performed by the resident/fellow. I reviewed the resident/fellow's documentation and discussed the patient with the resident/fellow. I agree with the resident/fellow's medical decision making as documented in the note. Aj Joel MD Source Note - 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 APRN-MATHEMATICS TEACHER - 12/13/2023 10:15 AM EST CPM/PAT Evaluation Name: Jeff Cardenas (Jeff Cardenas) /Age: 1211/28/1955/68 y.o. Visit Type: In-Person Chief Complaint: Sensorineural hearing loss scheduled for surgery. HPI patient is a 68-year-old male scheduled for insertion of cochlear implant on December 27, 2023 for sensorineural hearing loss. The patient is referred by Dr. Aj Joel for preoperative evaluation of hypertension, inguinal hernia status post repair, GERD, vitamin D deficiency. Past Medical History: Diagnosis Date Hypertension Past Surgical History: Procedure Laterality Date COLONOSCOPY HERNIA REPAIR Left inguinal Patient has no history on file for sexual activity. Family History Problem Relation Name Age of Onset Kidney failure Mother Heart attack Father No Known Allergies Prior to Admission medications Medication Sig Start Date End Date Taking? Authorizing Provider amLODIPine (Norvasc) 10 mg tablet Take 1 tablet (10 mg) by mouth once daily. Historical Provider, losartan-hydrochlorothiazide (Hyzaar) 50-12.5 mg tablet Take 1 tablet by mouth once daily. 07/03/23 Historical Provider, omeprazole (PriLOSEC) [address] capsule Take 1 capsule (20 mg) by mouth once daily. Historical Provider, spironolactone (Aldactone) 25 mg tablet Take 1 tablet (25 mg) by mouth once daily. Historical Provider, Vitamin D3 125 mcg (5,000 unit) tablet Take 1 tablet (5,000 Units) by mouth once daily. 04/04/23 Historical Provider, MD JC ROS: Constitutional: neg Neuro/Psych: neg Eyes: neg use of corrective lenses Ears: hearing loss hearing aides Nose: neg Mouth: neg Throat: neg Neck: neg Cardio: neg Respiratory: neg Endocrine: neg GI: neg : neg Musculoskeletal: neg Hematologic: neg Skin: neg Physical Exam Vitals reviewed. Constitutional: Appearance: Normal appearance. HENT: Head: Normocephalic. Nose: Nose normal. Mouth/Throat: Mouth: Mucous membranes are moist. Eyes: Conjunctiva/sclera: Conjunctivae normal. Neck: Vascular: No carotid bruit. Cardiovascular: Rate and Rhythm: Normal rate and regular rhythm. Pulses: Normal pulses. Heart sounds: Normal heart sounds. Pulmonary: Effort: Pulmonary effort is normal. Breath sounds: Normal breath sounds. Abdominal: Palpations: Abdomen is soft. Tenderness: There is no abdominal tenderness. Musculoskeletal: General: Normal range of motion. Cervical back: Normal range of motion. Right lower leg: No edema. Left lower leg: No edema. Lymphadenopathy: Cervical: No cervical adenopathy. Skin: General: Skin is warm and dry. Capillary Refill: Capillary refill takes less than 2 seconds. Neurological: General: No focal deficit present. Mental Status: He is alert and oriented to person, place, and time. Psychiatric: Mood and Affect: Mood normal. Behavior: Behavior normal. Behavior is cooperative. Thought Content: Thought content normal. Judgment: Judgment normal. PAT AIRWAY: Airway: Mallampati:: II Neck ROM:: Full Poor dentition- missing lots of teeth Visit Vitals BP 134/83 Pulse 70 Temp 36.2 C (97.2 F) DASI Risk Score Flowsheet Row Most Recent Value DASI SCORE 46.95 METS Score (Will be calculated only when all the questions are answered) 8.5 Caprini DVT Assessment Flowsheet Row Most Recent Value DVT Score 8 Current Status Major surgery planned, lasting over 3 hours Age 60-75 years BMI 30 or less Modified Frailty Index Flowsheet Row Most Recent Value Modified Frailty Index Calculator .0909 CHADS2 Stroke Risk Current as of 25 minutes ago N/A 3 - 100%: High Risk 2 - 3%: Medium Risk 0 - 2%: Low Risk Last Change: N/A This score determines the patient's risk of having a stroke if the patient has atrial fibrillation. This score is not applicable to this patient. Components are not calculated. Revised Cardiac Risk Index Flowsheet Row Most Recent Value Revised Cardiac Risk Calculator 0 Apfel Simplified Score Flowsheet Row Most Recent Value Apfel Simplified Score Calculator 2 Risk Analysis Index Results This Encounter No data found in the last 1 encounters. Stop Bang Score Flowsheet Row Most Recent Value Do you snore loudly? 0 Do you often feel tired or fatigued after your sleep? 1 Has anyone ever observed you stop breathing in your sleep? 0 Do you have or are you being treated for high blood pressure? 1 Recent BMI (Calculated) 27.9 Is BMI greater than 35 kg/m2? 0=No Age older than 50 years old? 1=Yes Is your neck circumference greater than 17 inches (Male) or 16 inches (Female)? 0 Gender - Male 1=Yes STOP-BANG Total Score 4 Assessment and Plan: Neuro: No neurologic diagnoses, however, the patient is at an increased risk for post operative delirium secondary to age >65, sensory impairment, type and duration of surgery. Preoperative brain exercise educational handout provided to patient. The patient is at an increased risk for perioperative stroke secondary to increased age, HTN, general anesthesia and op time >2.5 hours. HEENT/Airway: sensorineural hearing loss scheduled for surgery Cardiovascular: HTN managed with diet and medications. EKG in office today NSR. No additional preoperative testing is currently indicated. METS are 8.5 RCRI 0 which is 3.9% 30 day risk of MACE (risk for cardiac , nonfatal myocardial infarction, and nonfactal cardiac arrest MI score which indicates a 0.2% risk of intraoperative or 30-day postoperative MACE Pulmonary: No diagnosis however significant findings on chart review or clinical presentation and evaluation see below. Preoperative deep breathing educational handout provided to patient. ARISCAT: 26 points which is an intermediate risk of in-hospital post-op pulmonary complications PRODIGY: 16 points which is a high risk of post op opioid induced respiratory depression episodes STOP BAN points which is an intermediate risk for moderate to severe ALEXANDER. Patient to discuss with PCP closer to home post op. Renal: No diagnosis or significant findings on chart review or clinical presentation and evaluation, however, the patient is at increased risk of perioperative renal complications secondary to age> 56, male sex, HTN, intraperitoneal surgery. Preventative measures include preoperative BP control and hydration. Endocrine: No diagnosis or significant findings on chart review or clinical presentation and evaluation. Hematologic: No diagnosis or significant findings on chart review or clinical presentation and evaluation. Preoperative DVT educational handout provided to patient. Caprini Score: 8 points which is a highest risk of perioperative VTE Gastrointestinal: GERD managed with diet and medications EAT-10 score of 0- self-perceived oropharyngeal dysphagia scale (0-40) Apfel: 2 points 39% risk for post operative N/V Infectious disease: No diagnosis or significant findings on chart review or clinical presentation and evaluation. Musculoskeletal: No diagnosis or significant findings on chart review or clinical presentation and evaluation. Labs ordered Results for orders placed or performed in visit on 12/13/23 (from the past 96 hour(s)) CBC Result Value Ref Range WBC 9.0 4.4 - 11.3 x10*3/uL nRBC 0.0 0.0 - 0.0 /100 WBCs RBC 5.01 4.50 - 5.90 x10*6/uL Hemoglobin 15.6 13.5 - 17.5 g/dL Hematocrit 46.4 41.0 - 52.0 % MCV 93 80 - 100 fL MCH 31.1 26.0 - 34.0 pg MCHC 33.6 32.0 - 36.0 g/dL RDW 12.6 11.5 - 14.5 % Platelets 269 150 - 450 x10*3/uL Basic Metabolic Panel Result Value Ref Range Glucose 98 74 - 99 mg/dL Sodium 137 136 - 145 mmol/L Potassium 4.7 3.5 - 5.3 mmol/L Chloride 100 98 - 107 mmol/L Bicarbonate 25 21 - 32 mmol/L Anion Gap 17 10 - 20 mmol/L Urea Nitrogen 22 6 - 23 mg/dL Creatinine 1.21 0.50 - 1.30 mg/dL eGFR 65 >60 mL/min/1.73m*2 Calcium 9.6 8.6 - 10.6 mg/dL [facility] Work Phone: 12-27-2023 History and physical note H&P reviewed. The patient was examined and there are no changes to the H&P. Associated attestation - Aj Zuniga MD - 12/27/2023 12:41 PM EST I saw and evaluated the patient. I personally obtained the shepard and critical portions of the history and physical exam or was physically present for shepard and critical portions performed by the resident/fellow. I reviewed the resident/fellow's documentation and discussed the patient with the resident/fellow. I agree with the resident/fellow's medical decision making as documented in the note. Aj Joel MD Source Note - BRODY Vu - 12/13/2023 10:15 AM EST CPM/PAT Evaluation Name: Jeff Cardenas (Jeff Cardenas) /Age: 1211/28/1955/68 y.o. Visit Type: In-Person Chief Complaint: Sensorineural hearing loss scheduled for surgery. HPI patient is a 68-year-old male scheduled for insertion of cochlear implant on December 27, 2023 for sensorineural hearing loss. The patient is referred by Dr. Aj Joel for preoperative evaluation of hypertension, inguinal hernia status post repair, GERD, vitamin D deficiency. Past Medical History: Diagnosis Date Hypertension Past Surgical History: Procedure Laterality Date COLONOSCOPY HERNIA REPAIR Left inguinal Patient has no history on file for sexual activity. Family History Problem Relation Name Age of Onset Kidney failure Mother Heart attack Father No Known Allergies Prior to Admission medications Medication Sig Start Date End Date Taking? Authorizing Provider amLODIPine (Norvasc) 10 mg tablet Take 1 tablet (10 mg) by mouth once daily. Historical Provider, losartan-hydrochlorothiazide (Hyzaar) 50-12.5 mg tablet Take 1 tablet by mouth once daily. 07/03/23 Historical Provider, omeprazole (PriLOSEC) [address] capsule Take 1 capsule (20 mg) by mouth once daily. Historical Provider, spironolactone (Aldactone) 25 mg tablet Take 1 tablet (25 mg) by mouth once daily. Historical Provider, Vitamin D3 125 mcg (5,000 unit) tablet Take 1 tablet (5,000 Units) by mouth once daily. 04/04/23 Historical Provider, MD JC ROS: Constitutional: neg Neuro/Psych: neg Eyes: neg use of corrective lenses Ears: hearing loss hearing aides Nose: neg Mouth: neg Throat: neg Neck: neg Cardio: neg Respiratory: neg Endocrine: neg GI: neg : neg Musculoskeletal: neg Hematologic: neg Skin: neg Physical Exam Vitals reviewed. Constitutional: Appearance: Normal appearance. HENT: Head: Normocephalic. Nose: Nose normal. Mouth/Throat: Mouth: Mucous membranes are moist. Eyes: Conjunctiva/sclera: Conjunctivae normal. Neck: Vascular: No carotid bruit. Cardiovascular: Rate and Rhythm: Normal rate and regular rhythm. Pulses: Normal pulses. Heart sounds: Normal heart sounds. Pulmonary: Effort: Pulmonary effort is normal. Breath sounds: Normal breath sounds. Abdominal: Palpations: Abdomen is soft. Tenderness: There is no abdominal tenderness. Musculoskeletal: General: Normal range of motion. Cervical back: Normal range of motion. Right lower leg: No edema. Left lower leg: No edema. Lymphadenopathy: Cervical: No cervical adenopathy. Skin: General: Skin is warm and dry. Capillary Refill: Capillary refill takes less than 2 seconds. Neurological: General: No focal deficit present. Mental Status: He is alert and oriented to person, place, and time. Psychiatric: Mood and Affect: Mood normal. Behavior: Behavior normal. Behavior is cooperative. Thought Content: Thought content normal. Judgment: Judgment normal. PAT AIRWAY: Airway: Mallampati:: II Neck ROM:: Full Poor dentition- missing lots of teeth Visit Vitals BP 134/83 Pulse 70 Temp 36.2 C (97.2 F) DASI Risk Score Flowsheet Row Most Recent Value DASI SCORE 46.95 METS Score (Will be calculated only when all the questions are answered) 8.5 Caprini DVT Assessment Flowsheet Row Most Recent Value DVT Score 8 Current Status Major surgery planned, lasting over 3 hours Age 60-75 years BMI 30 or less Modified Frailty Index Flowsheet Row Most Recent Value Modified Frailty Index Calculator .0909 CHADS2 Stroke Risk Current as of 25 minutes ago N/A 3 - 100%: High Risk 2 - 3%: Medium Risk 0 - 2%: Low Risk Last Change: N/A This score determines the patient's risk of having a stroke if the patient has atrial fibrillation. This score is not applicable to this patient. Components are not calculated. Revised Cardiac Risk Index Flowsheet Row Most Recent Value Revised Cardiac Risk Calculator 0 Apfel Simplified Score Flowsheet Row Most Recent Value Apfel Simplified Score Calculator 2 Risk Analysis Index Results This Encounter No data found in the last 1 encounters. Stop Bang Score Flowsheet Row Most Recent Value Do you snore loudly? 0 Do you often feel tired or fatigued after your sleep? 1 Has anyone ever observed you stop breathing in your sleep? 0 Do you have or are you being treated for high blood pressure? 1 Recent BMI (Calculated) 27.9 Is BMI greater than 35 kg/m2? 0=No Age older than 50 years old? 1=Yes Is your neck circumference greater than 17 inches (Male) or 16 inches (Female)? 0 Gender - Male 1=Yes STOP-BANG Total Score 4 Assessment and Plan: Neuro: No neurologic diagnoses, however, the patient is at an increased risk for post operative delirium secondary to age >65, sensory impairment, type and duration of surgery. Preoperative brain exercise educational handout provided to patient. The patient is at an increased risk for perioperative stroke secondary to increased age, HTN, general anesthesia and op time >2.5 hours. HEENT/Airway: sensorineural hearing loss scheduled for surgery Cardiovascular: HTN managed with diet and medications. EKG in office today NSR. No additional preoperative testing is currently indicated. METS are 8.5 RCRI 0 which is 3.9% 30 day risk of MACE (risk for cardiac , nonfatal myocardial infarction, and nonfactal cardiac arrest MI score which indicates a 0.2% risk of intraoperative or 30-day postoperative MACE Pulmonary: No diagnosis however significant findings on chart review or clinical presentation and evaluation see below. Preoperative deep breathing educational handout provided to patient. ARISCAT: 26 points which is an intermediate risk of in-hospital post-op pulmonary complications PRODIGY: 16 points which is a high risk of post op opioid induced respiratory depression episodes STOP BAN points which is an intermediate risk for moderate to severe ALEXANDER. Patient to discuss with PCP closer to home post op. Renal: No diagnosis or significant findings on chart review or clinical presentation and evaluation, however, the patient is at increased risk of perioperative renal complications secondary to age> 56, male sex, HTN, intraperitoneal surgery. Preventative measures include preoperative BP control and hydration. Endocrine: No diagnosis or significant findings on chart review or clinical presentation and evaluation. Hematologic: No diagnosis or significant findings on chart review or clinical presentation and evaluation. Preoperative DVT educational handout provided to patient. Caprini Score: 8 points which is a highest risk of perioperative VTE Gastrointestinal: GERD managed with diet and medications EAT-10 score of 0- self-perceived oropharyngeal dysphagia scale (0-40) Apfel: 2 points 39% risk for post operative N/V Infectious disease: No diagnosis or significant findings on chart review or clinical presentation and evaluation. Musculoskeletal: No diagnosis or significant findings on chart review or clinical presentation and evaluation. Labs ordered Results for orders placed or performed in visit on 12/13/23 (from the past 96 hour(s)) CBC Result Value Ref Range WBC 9.0 4.4 - 11.3 x10*3/uL nRBC 0.0 0.0 - 0.0 /100 WBCs RBC 5.01 4.50 - 5.90 x10*6/uL Hemoglobin 15.6 13.5 - 17.5 g/dL Hematocrit 46.4 41.0 - 52.0 % MCV 93 80 - 100 fL MCH 31.1 26.0 - 34.0 pg MCHC 33.6 32.0 - 36.0 g/dL RDW 12.6 11.5 - 14.5 % Platelets 269 150 - 450 x10*3/uL Basic Metabolic Panel Result Value Ref Range Glucose 98 74 - 99 mg/dL Sodium 137 136 - 145 mmol/L Potassium 4.7 3.5 - 5.3 mmol/L Chloride 100 98 - 107 mmol/L Bicarbonate 25 21 - 32 mmol/L Anion Gap 17 10 - 20 mmol/L Urea Nitrogen 22 6 - 23 mg/dL Creatinine 1.21 0.50 - 1.30 mg/dL eGFR 65 >60 mL/min/1.73m*2 Calcium 9.6 8.6 - 10.6 mg/dL documented in this encounter [facility] Work Phone: 10-14-2023 History of Present illness Narrative Images from the original note were not included. Reason for Consult: Hearing loss Subjective History Of Present Illness: Jeff Cardenas is a 67 y.o. male with bilateral profound SNHL. He meets FDA criteria for cochlear implantation in both ears. His right ear is his worse hearing ear and has not been aided in the last 30-40 years. For that reason, we elected to implant the left ear as it's the only ear that has been stimulated. In the last visit, I ordered a CT IAC, cognitive evaluation, pneumococcal vaccination, and financial counseling prior to surgery. He is coming in today for a virtual follow-up appointment. Past Medical History: He has no past medical history on file. Surgical History: He has no past surgical history on file. Social History: He reports that he has never smoked. He has never used smokeless tobacco. He reports that he does not currently use alcohol. He reports that he does not use drugs. Family History: family history is not on file. Medications: Current Outpatient Medications Medication Instructions amLODIPine (NORVASC) 10 mg, oral, Daily losartan-hydrochlorothiazide (Hyzaar) 50-12.5 mg tablet 1 tablet, oral, Daily omeprazole (PRILOSEC) 20 mg, oral, Daily spironolactone (ALDACTONE) 25 mg, oral, Daily Vitamin D3 5,000 Units, oral, Daily Allergies: Patient has no known allergies. Review of Systems: A comprehensive 10-point review of systems was obtained including constitutional, neurological, HEENT, pulmonary, cardiovascular, genito-urinary, and other pertinent systems and was negative except as noted in the HPI. Objective Physical Exam: Last Recorded Vitals: There were no vitals taken for this visit. Physical Exam: On physical exam, the patient is a well-nourished well-developed patient, in no acute distress able to communicate with assistance in Sami language. Head and face is atraumatic and normocephalic, facial strength is symmetrical bilaterally. On ear examination: Normal Pinna. No further examination performed as this was virtual visit. On Neuro exam, the patient is alert and oriented x3, cranial nerves are grossly intact. No further examination performed as this was a virtual visit. Reviewed Results Cochlear Implant Evaluation: I personally reviewed the CI evaluation from 09/2023 that showed: profound SNHL bilaterally with 0% speech understanding. In aided testing: He has 0% on CNC, [employer] in quiet and noise. Imaging: I personally reviewed the CT of the temporal bone from 10/2023 that showed bilateral lucidness around the cochlea consistent with bilateral otosclerosis. Assessment/Plan In summary, Jeff Cardenas is a 67 y.o. male with bilateral profound SNHL. He meets FDA criteria for cochlear implantation in both ears. His right ear is his worse hearing ear and has not been aided in the last 30-40 years. For that reason, we elected to implant the left ear as it's the only ear that has been stimulated. I reviewed the CT scan that showed bilateral otosclerosis The risks, indications, alternatives and complications of doing a left-sided CI were discussed with the patient. The patient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 AUTHOR'S ORGANIZ ATION 10/17/2023 [facility] DATE CREATED AUTHOR AUTHOR'S ORGANIZ ATION 12/18/2023 [facility] DATE CREATED AUTHOR AUTHOR'S ORGANIZ ATION 01/05/2024 [facility] DATE CREATED AUTHOR AUTHOR'S ORGANIZ ATION 01/08/2024 [facility] Reason for Visit (unrecogniz ed section and content) Specialty Diagnoses / Procedures Referred By Contac t Referred To Contact Diagnoses Preoperative examination Procedures ECG 12 Lead 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, 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 [address] [address] [place] [address] Referral ID Status Reason Start Date Expiration Date V isits Requested Visits Authorized [id number] Authorized 12/13/2023 12/12/2024 1 1 Specialty Diagnoses / Procedures Referred By Contac t Referred To Contact Diagnoses Sensorineural hearing loss (SNHL) of both ears Sensorineural hearing loss (SNHL) of both ears [H90.3] Procedures [place] COCHLEAR DEVICE IMPLANTATION W/WO MASTOIDECTOMY [place] [address] [address] [place] [address] [facility] [place] [address] [place] [address] Referral ID Status Reason Start Date Expiration Date Visits Re quested Visits Authorized 1 1 Care Teams (unrecognized sec tion and content) Direct Service Professional Relationship Specialty Start Date End Date Generic Provider, No Assigned PcpMD [address] [place] [address] PCP - General Family Medicine 09/27/23 Direct Service Professional Relationship Specialty Start Date End Date Lucrecia Murphy MD [address] [place], [place] [id number] PCP - General Internal Medicine 12/27/23 Scheduled Active and Recently Administ ered Medications (unrecognized section and content) Continuous Medication Order 12/25/2023 12/26/2023 12/27/2023 sodium chloride 0.9% infusion 100 mL/hr, intravenous, Continuous, Starting on Sat12/27/23 at 0600, Preprocedure 0600 (Due) PRN Medication Order 12/25/2023 12/26/2023 12/27/2023 ciprofloxacin-dexamethasone (CiproDEX) otic suspension (CANCELED) As needed, Starting on Sat12/27/23 at 0835, Intraprocedure 0835 (Given - Provid er: Aj Joel MD) EPINEPHrine HCl (PF) (Adrenalin) injection (CANCELED) As needed, Starting on Sat12/27/23 at 0835, Intraprocedure 0835 (Given - Provid er: Aj Joel MD) gelatin absorbable (Gelfoam) 100 sponge (CANCELED) As needed, Starting on Sat12/27/23 at 0836, Intraprocedure 0836 (Given - Provid er: Aj Joel MD) lidocaine-epinephrine (Xylocaine W/EPI) 1 %-1:100,000 injection (CANCELED) As needed, Starting on Sat12/27/23 at 0836, Intraprocedure 0836 (Given - Provid er: Aj Joel MD) mupirocin (Bactroban) 2 % ointment (CANCELED) As needed, Starting on Sat12/27/23 at 0949, Intraprocedure 0949 (Given - Provid er: Aj Joel MD) ondansetron (Zofran) injection 4 mg (COMPLETED) 4 mg, intravenous, Once as needed, nausea/vomiting, first line, Starting on Sat12/27/23 at 1158, For 1 dose, Recovery (only), When administering via IV Push, administer over 3-5 minutes. 1241 (Given - Provid er: Aga Seymour RN) sodium chloride 0.9 % irrigation solution (CANCELED) As needed, Starting on Sat12/27/23 at 0836, Intraprocedure 0836 (Given - Provid er: Aj Joel MD) FOR RECORDS PERTAINING TO PATIENTS WHO ARE OR HAVE BEEN ENROLLED IN A CHEMICAL DEPENDENCY/SUBSTANCEABUSE PROGRAM, SOME INFORMATION MAY BE OMITTED. This clinical summary was aggregated from multiple sources. Caution should be exercised in using it in the provision of clinical care. This summary normalizes information from multiple sources, and as a consequence, information in this document may materially change the coding, format and clinical context of patient data. In addition, data may be omitted in some cases. CLINICAL DECISIONS SHOULD BE BASED ON THE PRIMARY CLINICAL RECORDS. [facility] [employer] [facility]. provides no warranty or guarantee of the accuracy or completeness of information in this document.
[2024-01-09 14:30] VITALS: O2SAT 94
[2024-01-09] MEDS: Ciprofloxacin 500 MG Tablet PO (15:07)
[2024-01-09] MEDS: metroNIDAZOLE 500 MG Tablet PO (15:07)
== END 2024-01-09 15:13 | disposition home or self-care (01) ==
PROVIDERS: Emergency Provider Emergency Medicine; PCP Internal Medicine; Visit Provider Emergency Medicine
DX: K52.9 Noninfective gastroenteritis and colitis, unspecified (principal); K21.9 Gastro-esophageal reflux disease without esophagitis; I10 Essential (primary) hypertension
CPT/HCPCS: 74177; 80053; 82550; 85025; 99282; Q9967; A4216

== ENCOUNTER → 2024-10-16 | Outpatient (CLI) | payer MEDICARE, MEDICAID, SELFPAY ==
[2024-10-16 08:45] LABS: Absolute Lymphocyte Count 1.06 X10^3/uL (0.83-4.51); Absolute Neutrophil Count 3.6 X10^3/uL (2.0-7.7); Basophil# 0.03 X10^3/uL; Basophil% 0.5 % (0-1); Eosinophil# 0.13 X10^3/uL; Eosinophils% 2.4 % (0-5); Hematocrit 44.4 % (40-54); Hemoglobin 14.8 g/dL (13.0-16.5); Lymphocyte # 1.06 X10^3/ul (0.83-4.51); Lymphocyte % 19.2 % (19-41); Mean Corp Hgb Conc 33.3 g/dL (32-36); Mean Corpuscular Hgb 30.3 pg (27.0-32.0); Mean Platelet Vol. 10.1 fl (6.2-12.0); Monocyte# 0.74 X10^3/uL; Monocyte% 13.4 % (0-10); NRBC Flagged by Analyzer 0 % (0-5); Neutrophil # 3.56 X10^3/uL (2.7-7.7); Neutrophil % 64.3 % (47-70); Platelet Count 239 K/mm3 (150-450); RBC Distribution Width CV 13.2 % (11.6-14.6); RBC Distribution Width SD 44.1 fl (35.1-43.9); Red Blood Count 4.88 M/mm3 (4.6-6.2); White Blood Count 5.5 K/mm3 (4.4-11.0)
[2024-10-16 08:54] LABS: ALB/GLOB Ratio 1.1 RATIO (0.9-2.4); AST(SGOT) 24 U/L (15-37); Alanine Aminotransfer ALT/SGPT 27 U/L (16-61); Albumin, Serum 3.7 g/dL (3.2-5.0); Alkaline Phosphatase 84 U/L (45-117); Anion Gap 3 (5-15); BUN 29 mg/dL (7-18); Calcium,Total 8.9 mg/dL (8.5-10.1); Chloride 106 mmol/L (98-107); Cholesterol 172 mg/dL (200); Creatinine, Serum 1.21 mg/dL (0.70-1.30); EST Glomerular Filtration Rate 63 mL/min (>60); Est Glom Filt Rate - Afr Amer 77 mL/min (>60); Globulin 3.4 g/dL (2.2-4.2); Glucose 115 mg/dL (74-106); High Density Lipoprotein 48 mg/dL; PSA,Total - Annual Screen 0.37 ng/mL (0.00-4.00); Potassium 4.2 mmol/L (3.5-5.1); Protein, Total 7.1 g/dL (6.4-8.2); Sodium Level 139 mmol/L (136-145); Triglycerides 67 mg/dL; Very Low Density Lipoprotein 13 mg/dL (5-40)
== END | disposition home or self-care (01) ==
LOC: LAB 07:55
PROVIDERS: PCP Internal Medicine; Referring Provider Internal Medicine; Visit Provider Internal Medicine
DX: Z12.5 Encounter for screening for malignant neoplasm of prostate (principal); I10 Essential (primary) hypertension; Z13.220 Encounter for screening for lipoid disorders
CPT/HCPCS: 36415; 80053; 80061; 84153; 85025; G0103

== ENCOUNTER → 2025-02-15 | Outpatient (CLI) | payer MEDICARE, SELFPAY ==
[2025-02-15 16:10] LABS: ALB/GLOB Ratio 1.4 RATIO (0.9-2.4); AST(SGOT) 27 U/L (<=37); Alanine Aminotransfer ALT/SGPT 23 U/L (<=46); Albumin, Serum 4.3 g/dL (3.4-4.8); Alkaline Phosphatase 93 U/L (40-129); Anion Gap 10 (5-15); BUN 23 mg/dL (4-19); BUN/Creat Ratio 17.6 RATIO (10-20); Carbon Dioxide 25.7 mmol/L (21.0-32.0); Chloride 101 mmol/L (98-108); Creatinine, Serum 1.33 mg/dL (0.70-1.20); EST Glomerular Filtration Rate 58 (>60); Globulin 3.2 g/dL (2.2-4.2); Glucose 98 mg/dL (70-99); Magnesium 2.1 mg/dL (1.5-2.2); Potassium 4.7 mmol/L (3.3-5.1); Protein, Total 7.5 g/dL (5.9-8.4); Sodium Level 137 mmol/L (133-145)
== END | disposition home or self-care (01) ==
LOC: BIMLAB 12:30
PROVIDERS: PCP Internal Medicine; Referring Provider Internal Medicine; Visit Provider Internal Medicine
DX: I10 Essential (primary) hypertension (principal)
CPT/HCPCS: 36415; 80053; 83735

== ENCOUNTER → 2025-09-10 | Outpatient (CLI) | payer MEDICARE, SELFPAY ==
[2025-09-10 10:02] LABS: Hematocrit 43.8 % (40-54); Hemoglobin 15.0 g/dL (13.0-16.5); Immature Granulocytes Count 0.020 X10^3/uL (0.0-0.0); Mean Corp Hgb Conc 34.2 g/dL (32-36); Mean Corpuscular Volume 92.0 fL (80-94); Mean Platelet Vol. 10.1 fl (6.2-12.0); NRBC Flagged by Analyzer 0 % (0-5); Platelet Count 234 K/mm3 (150-450); RBC Distribution Width CV 12.7 % (11.6-14.6); RBC Distribution Width SD 43.3 fl (35.1-43.9); Red Blood Count 4.76 M/mm3 (4.6-6.2); White Blood Count 5.8 K/mm3 (4.4-11.0)
[2025-09-10 11:12] LABS: AST(SGOT) 25 U/L (<=37); Alanine Aminotransfer ALT/SGPT 20 U/L (<=46); Albumin, Serum 4.2 g/dL (3.4-4.8); Alkaline Phosphatase 85 U/L (40-129); Anion Gap 10 (5-15); BUN 27 mg/dL (4-19); BUN/Creat Ratio 22.4 RATIO (10-20); Calcium,Total 9.4 mg/dL (7.6-11.0); Carbon Dioxide 26.0 mmol/L (21.0-32.0); Chloride 103 mmol/L (98-108); Cholesterol 186 mg/dL (<=200); Globulin 3.0 g/dL (2.2-4.2); Glucose 117 mg/dL (70-99); Low Density Lipoprotein Calc. 125 mg/dL; Magnesium 2.0 mg/dL (1.5-2.2); Potassium 3.7 mmol/L (3.3-5.1); Triglycerides 77 mg/dL; Very Low Density Lipoprotein 15 mg/dL (5-40); Vitamin D,25 Hydroxy 79.0 ng/mL (30-100); cholesterol:hdl ratio screen 4.06
== END | disposition home or self-care (01) ==
LOC: LAB 09:39
PROVIDERS: PCP Internal Medicine; Referring Provider Internal Medicine; Visit Provider Internal Medicine
DX: Z13.220 Encounter for screening for lipoid disorders (principal); I10 Essential (primary) hypertension; K21.9 Gastro-esophageal reflux disease without esophagitis; H91.93 Unspecified hearing loss, bilateral; Z96.21 Cochlear implant status; E55.9 Vitamin D deficiency, unspecified
CPT/HCPCS: 80053; 80061; 82306; 83735; 84443; 85025